=== PATIENT | female | born 1940 | race Caucasian/White ===

== ENCOUNTER 2016-05-17 18:24 | Inpatient (IN) | payer BC, MEDICARE ==
[2016-05-17 20:40] VITALS: BMI 30.2
[2016-05-17 21:30] LABS: Glucose,Whole Blood 107 mg/dL (75-99)
[2016-05-17] MEDS ORDERED: SODIUM CHLORIDE 0.9% 1,000 ML IV SCH (21:45)
--- NOTE | 2016-05-17 22:01 | XR ---
EXAMINATION TYPE: XR chest 1V portable DATE OF EXAM: 05/17/2016 9:57 PM COMPARISON: NONE HISTORY: Double vision TECHNIQUE: Single frontal view of the chest is obtained. FINDINGS: There is no heart failure nor confluent pneumonic infiltrate. There are no hilar masses. C ostophrenic angles are clear. There are chest leads. IMPRESSION: No active cardiopulmonary disease.
[2016-05-17] MEDS: MELATONIN 5 MG TABLET PO SCH (22:32)
[2016-05-17] MEDS: ATORVASTATIN 20 MG TAB PO SCH (22:32)
[2016-05-17] MEDS: DULoxetine HCL 30 MG CAPSULE.DR PO SCH (22:32)
[2016-05-17 22:38] LABS: Basophils % (A) 1 %; CH 31.2; CHCM 33.9; Eosinophils # (A) 0.1 k/uL (0-0.7); Eosinophils % (A) 2 %; HCT 38.4 % (34.0-46.0); HDW 2.63; HGB 12.8 gm/dL (11.4-16.0); Luc # (Auto) 0.15; Luc % (Auto) 2; Lymphocytes # (A) 3.2 k/uL (1.0-4.8); Lymphocytes % (A) 50 %; MCHC 33.4 g/dL (31.0-37.0); MCV 92.8 fL (80.0-100.0); Mean Platelet Volume 8.1; Monocytes # (A) 0.3 k/uL (0-1.0); Monocytes % (A) 5 %; Neutrophils # (A) 2.6 k/uL (1.3-7.7); Neutrophils % (A) 41 %; RBC 4.14 m/uL (3.80-5.40); RDW 13.4 % (11.5-15.5); WBC 6.4 k/uL (3.8-10.6); WBC (Perox) 6.38
[2016-05-17 22:45] LABS: Prothrombin Time 10.4 sec (9.0-12.0)
[2016-05-17 22:50] LABS: Calcium 9.9 mg/dL (8.4-10.2); Potassium 4.2 mmol/L (3.5-5.1)
[2016-05-17] MEDS ORDERED: ACETAMINOPHEN TAB 325 MG TAB PO PRN (22:50)
[2016-05-18 06:28] LABS: Glucose,Whole Blood 110 mg/dL (75-99)
[2016-05-18] MEDS: INSULIN LISPRO (humaLOG) 300 UNIT/3 ML VIAL SQ SCH ×4 (06:39→21:20)
[2016-05-18] MEDS: PANTOPRAZOLE 40 MG TABLET PO SCH (06:40)
[2016-05-18 06:51] LABS: Calcium 9.8 mg/dL (8.4-10.2); Potassium 4.5 mmol/L (3.5-5.1)
[2016-05-18 06:57] LABS: Basophils % (A) 1 %; CH 30.9; CHCM 33.2; Eosinophils # (A) 0.1 k/uL (0-0.7); Eosinophils % (A) 2 %; HCT 38.3 % (34.0-46.0); HDW 2.61; HGB 12.5 gm/dL (11.4-16.0); Luc # (Auto) 0.19; Luc % (Auto) 4; Lymphocytes # (A) 2.9 k/uL (1.0-4.8); Lymphocytes % (A) 59 %; MCH 30.6 pg (25.0-35.0); MCHC 32.6 g/dL (31.0-37.0); MCV 93.7 fL (80.0-100.0); Mean Platelet Volume 7.9; Monocytes # (A) 0.2 k/uL (0-1.0); Monocytes % (A) 5 %; Neutrophils # (A) 1.5 k/uL (1.3-7.7); Neutrophils % (A) 30 %; RBC 4.09 m/uL (3.80-5.40); RDW 13.3 % (11.5-15.5); WBC (Perox) 5.08
[2016-05-18 08:07] LABS: Hemoglobin A1C 6.5 % (4.2-6.1)
[2016-05-18] MEDS: MULTIVITAMINS, THERA 1 EACH TAB PO SCH (08:13)
[2016-05-18] MEDS: BISOPROLOL 5 MG TAB PO SCH (08:14)
[2016-05-18] MEDS: DULoxetine HCL 30 MG CAPSULE.DR PO SCH ×2 (08:14→08:20)
[2016-05-18] MEDS: ASPIRIN 81 MG CHEW PO SCH (08:14)
[2016-05-18] MEDS: LORATADINE 10 MG TAB PO SCH (08:14)
[2016-05-18] MEDS: LOSARTAN 25 MG TAB PO SCH (08:14)
[2016-05-18] MEDS: CALCIUM CARB-VIT D 500MG-200UN 1 EACH TAB PO SCH (08:14)
[2016-05-18] MEDS ORDERED: ERGOCALCIFEROL 50,000 UNIT CAP PO SCH (09:00)
[2016-05-18 11:59] LABS: Glucose,Whole Blood 116 mg/dL (75-99)
[2016-05-18] MEDS: Acetaminophen-Codeine 300-30mg TAB PO PRN ×2 (13:59→20:27)
--- NOTE | 2016-05-18 15:31 | P.HPIM ---
History of Present Illness H&P Date: 05/18/16 76-year-old female with history of hypertension, diabetes mellitus type 2, the hospital with acute onset double vision. Patient was in good health until 2 nights ago and patient noted sudden onset double vision. Patient then went to the [facility] with similar complaints. Since patient has had 12 hours of symptoms initially it was discussed that patient could have a workup on outpatient basis. However patient complained of a headache during the same period of time that has been ongoing around her left eye. The patient covers her left eye is able to have normal vision. Initial computed tomography scan of the head was negative at the other facility. Patient denies having any other focal motor or sensory deficits. Patient denies having any dizziness when her left eye is closed especially. Does complain of a headache that is orbital location radiating to the back of her head does state to have some tearing around the eye as well. 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, History of Any Multi-Drug Resistant Organisms: None Reported Past Surgical History: Adenoidectomy, Cholecystectomy, Hysterectomy, Tonsillectomy Past Anesthesia/Blood Transfusion Reactions: No Reported Reaction Past Psychological History: No Psychological Hx Reported Smoking Status: Never smoker Past Alcohol Use History: None Reported Past Drug Use History: None Reported - Past Family History Sister(s) Family Medical History: Dementia Medications and Allergies Home Medications Medication Instructions Recorded Confirmed Type Acetaminophen Tab [Tylenol Tab] 1,000 mg PO [facility] 05/17/16 05/17/16 History Acetaminophen Tab [Tylenol Tab] 500 mg PO 05/17/16 05/17/16 History Aspirin [Adult Low Dose Aspirin EC] 81 mg PO DAILY 05/17/16 05/17/16 History Atorvastatin [Lipitor] 20 mg PO HS 05/17/16 05/17/16 History Bisoprolol [Zebeta] 10 mg PO DAILY 05/17/16 05/17/16 History Calcium Carbonate/Vitamin D3 1 tab PO DAILY 05/17/16 05/17/16 History [Calcium 600-Vit D3 800 Tab] DULoxetine HCL [Cymbalta] 60 mg PO DAILY 05/17/16 05/18/16 History Ergocalciferol [Vitamin D2] 50,000 unit PO Q30D 05/17/16 05/17/16 History Glimepiride [Amaryl] 0.5 mg PO Q48H 05/17/16 05/17/16 History Loratadine [Claritin] 10 mg PO DAILY 05/17/16 05/17/16 History Losartan [Cozaar] 25 mg PO DAILY 05/17/16 05/17/16 History Melatonin 5 mg PO HS 05/17/16 05/17/16 History Multivits-Min/Iron/FA/Lutein 1 tab PO DAILY 05/17/16 05/17/16 History [Centrum Silver Women Tablet] [place]-3 Fatty Acids/Fish Oil [Fish 1 cap PO DAILY 05/17/16 05/17/16 History Oil 1,000 mg Softgel] Omeprazole 20 mg PO DAILY 05/17/16 05/17/16 History Allergies Allergy/AdvReac Type Severity Reaction Status Date / Time cephalexin [From Keflex] Allergy Rash/Hives Verified 05/17/16 20:43 Physical Exam Vitals: Vital Signs Temp Pulse Resp BP Pulse Ox 05/18/16 14:25 97.2 F L 82 18 112/71 94 L 05/18/16 11:45 58 L 18 123/77 95 05/18/16 08:00 96.9 F L 59 L 18 109/64 92 L 05/18/16 04:00 50 L 18 132/77 94 L 05/18/16 00:00 69 18 129/75 94 L 05/17/16 20:00 97.8 F 62 18 139/85 95 Intake and Output 05/18/16 05/18/16 05/18/16 06:59 14:59 22:59 Intake Total 180 180 Balance 180 180 Intake: IV 180 180 Sodium Chloride 0.9% 1, 180 180 000 ml @ 20 mls/hr IV . Q24H [facility] Rx#:[id number] Other: # Voids 2 1 Physical exam Gen. appearance oriented 3 in no distress eyes pupils are sluggishly reactive on the left side Head is atraumatic normocephalic extraocular movements are intact Neck is supple no JVD Lungs good air entry clear to auscultation no rhonchi or wheezing Heart S1-S2 heard regular rate and rhythm no murmurs appreciated Abdomen is soft nontender no organomegaly bowel sounds are intact Neurologically cranial nerves II-12 grossly intact no focal motor or sensory deficits noted dysdiadochokinesia noted No visual field deficits appreciated. Skin no abnormalities appreciated Results CBC & Chem 7: 05/18/16 06:02 05/18/16 06:02 Labs: Abnormal Lab Results - Last 24 Hours (Table) 05/17/16 05/17/16 05/17/16 Range/Units 21:29 22:04 22:04 BUN 22 H (7-17) mg/dL Creatinine 1.21 H (0.52-1.04) mg/dL Glucose (74-99) mg/dL POC Glucose (mg/dL) 107 H (75-99) mg/dL Hemoglobin A1c 6.5 H (4.2-6.1) % 05/18/16 05/18/16 05/18/16 Range/Units 06:02 06:27 11:43 BUN 22 H (7-17) mg/dL Creatinine 1.20 H (0.52-1.04) mg/dL Glucose 112 H (74-99) mg/dL POC Glucose (mg/dL) 110 H 116 H (75-99) mg/dL Hemoglobin A1c (4.2-6.1) % Thrombosis Risk Factor Assmnt - Choose All That Apply Any of the Below Risk Factors Present?: Yes Each Factor Represents 1 point: Obesity (BMI >25), Swollen legs (current) Other Risk Factors: Yes Each Risk Factor Represents 2 Points: Age 61-74 years Other congenital or acquired thrombophilia - If yes, enter type in comment: Yes Thrombosis Risk Factor Assessment Total Risk Factor Score: 4 Thrombosis Risk Factor Assessment Level: Moderate Risk Assessment and Plan Plan: #1 double vision with left-sided headache. Differential diagnosis includes glaucoma versus an ocular stroke #2 history of hypertension #3 dyslipidemia #4 diabetes mellitus type 2 #5 headache likely associated with above #6 GERD Plan We'll have an graphic art sales representative see the patient. MRI of the brain will be obtained. Continue telemetry monitoring. A carotid study will be obtained. Aspirin and statin will be started. Echocardiogram will also be obtained to complete workup for acute CVA. Neurology consultation. Continue ongoing care in the selective floor.
--- NOTE | 2016-05-18 17:19 | MR ---
EXAMINATION TYPE: MR brain wo con DATE OF EXAM: 05/18/2016 5:08 PM COMPARISON: NONE HISTORY: Headache, double vision T1-weighted sagittal, T2, FLAIR, and diffusion axial, and T2 coronal coronal views of the brain are s ubmitted. There is no evidence of acute ischemia. The ventricles, basal cisterns, and sulci overlying the conv exities are consistent with the patient's age. There is no mass effect. Craniocervical junction maintained. Sella turcica has a normal appearance. No cerebellopontine angle mass. There is a 1.2 cm mass appears to be related to right parotid glands be correlated with CT soft tissue neck. Changes of mild chronic sinusitis. There a few scattered areas of abnormal signal within the white ma tter which are not as severely. No diffusion restriction. Measures less than 5 mm. Changes of chronic mastoiditis greater on the left noted. IMPRESSION: 1. No acute intracranial process 2. Nonspecific white matter changes. Remote microvascular ischemia favored over demyelinating process correlate clinically. 3. 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
[2016-05-18 17:47] LABS: Glucose,Whole Blood 108 mg/dL (75-99)
--- NOTE | 2016-05-18 18:06 | US ---
EXAMINATION TYPE: US carotid duplex BILAT DATE OF EXAM: 05/18/2016 5:31 PM COMPARISON: NONE CLINICAL HISTORY: stroke. EXAM MEASUREMENTS: RIGHT: Peak Systolic Velocity (PSV) cm/sec ----- Right CCA: 69.1 ----- Right ICA: 83.3 ----- Right ECA: 83.7 ICA/CCA ratio: 1.2 RIGHT: End Diastole cm/sec ----- Right CCA: 22.7 ----- Right ICA: 22.7 ----- Right ECA: 11.1 LEFT: Peak Systolic Velocity (PSV) cm/sec ----- Left CCA: 77.3 ----- Left ICA: 75.6 ----- Left ECA: 70.0 ICA/CCA ratio: 1.0 LEFT: End Diastole cm/sec ----- Left CCA: 21.5 ----- Left ICA: 30.4 ----- Left ECA: 10.6 VERTEBRALS (direction of flow): Right Vertebral: Antegrade Left Vertebral: Antegrade TECHNOLOGIST IMPRESSION: Mild amount of plaque visualized, no elevated velocities IMPRESSION: There is antegrade flow in the vertebral arteries. The images and measurements suggest 2 0-30% stenosis in both internal carotid arteries. Criteria for Assigning % of Stenosis / Diameter reduction (Estimation based on the indirect measurements of the internal carotid artery velocities (ICA PSV). 1. Normal (no stenosis)=ICA PSV < 125 cm/s: ratio < 2.0: ICA EDV<40 cm/s. 2. Less than 50% stenosis=ICA PSV < 125 cm/s: ratio < 2.0: ICA EDV<40 cm/s. 3. 50 to 69% stenosis=ICA PSV of 125 to 230 cm/s: ration 2.0 ? 4.0: ICA EDV 40-100 cm/s. 4. Greater than 70% stenosis to near occlusion= ICA PSV > 230 cm/s: ratio > 4.0: ICA EDV > 100 cm/s. 5. Near occlusion= ICA PSV velocities may be low or undetectable: variable ratio and ICA EDV. 6. Total occlusion=unable to detect flow.
--- NOTE | 2016-05-18 20:04 | P.CNNES ---
History of Present Illness Consult date: 05/18/16 Reason for Consult: This patient being evaluated for diplopia and headache. History of Present Illness: This patient is a 76-year-old right-handed white female who was in her usual state of health until 2 days ago. Apparently she developed sudden onset of headache and double vision. She was taken to [facility] for further evaluation. Apparently she was seen in the ER there for the headache and double vision. She underwent a computed tomography scan of the brain which was reported negative for any acute changes. The patient states that she awoke 2 nights ago with trouble with her vision. She states she was having double vision which she describes as horizontal diplopia. Images were appearing side- by-side. The symptoms came on suddenly out of nowhere as she has never had this problem previously. Patient also described headache symptoms. As noted she was evaluated in the emergency room at [facility] and was transferred to [facility] for further evaluation. Patient was seen by Dr. Kathleen and admitted to the [facility] and was sent for an MRI of the brain today. The results of the MRI indicate no acute intracranial process. Nonspecific white matter changes were noted. 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 Patient states she has had surgery on the right parotid gland many years ago. We would recommend further follow-up as recommended by radiology. The patient states that her vision continues to give her difficulty. Looking across the room she sees 2 objects on the wall. As noted there horizontal diplopia. She is to be seen by ophthalmology and we will await their further evaluation. Patient denies any previous history of TIA or stroke. She does have history of diabetes mellitus but her blood sugars have been well controlled. Her hemoglobin A1c was 6.5. The patient is now admitted and neurology has been consulted for further evaluation and recommendations. Review of Systems Constitutional: Denies chills, Denies fever Eyes: left irritation, bilateral diplopia, denies blurred vision, denies pain Ears, nose, mouth and throat: Denies headache, Denies sore throat Cardiovascular: Denies chest pain, Denies shortness of breath Respiratory: Denies cough Gastrointestinal: Denies abdominal pain, Denies diarrhea, Denies nausea, Denies vomiting Genitourinary: Denies dysuria, Denies hematuria Musculoskeletal: Denies myalgias Integumentary: Denies pruritus, Denies rash Neurological: Reports double vision, Reports headaches, Denies numbness, Denies weakness Psychiatric: Denies anxiety, Denies depression Endocrine: Denies fatigue, Denies weight change Past Medical History Past Medical History: Chest Pain / Angina, Diabetes Mellitus, Hyperlipidemia, Memory Impairment, Renal Disease Additional Past Medical History / Comment(s): 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, History of Any Multi-Drug Resistant Organisms: None Reported Past Surgical History: Adenoidectomy, Cholecystectomy, Hysterectomy, Tonsillectomy Past Anesthesia/Blood Transfusion Reactions: No Reported Reaction Past Psychological History: No Psychological Hx Reported Smoking Status: Never smoker Past Alcohol Use History: None Reported Past Drug Use History: None Reported - Past Family History Sister(s) Family Medical History: Dementia Medications and Allergies Home Medications Medication Instructions Recorded Confirmed Type Acetaminophen Tab [Tylenol Tab] 1,000 mg PO QAM 05/17/16 05/17/16 History Acetaminophen Tab [Tylenol Tab] 500 mg PO HS 05/17/16 05/17/16 History Aspirin [Adult Low Dose Aspirin EC] 81 mg PO DAILY 05/17/16 05/17/16 History Atorvastatin [Lipitor] 20 mg PO HS 05/17/16 05/17/16 History Bisoprolol [Zebeta] 10 mg PO DAILY 05/17/16 05/17/16 History Calcium Carbonate/Vitamin D3 1 tab PO DAILY 05/17/16 05/17/16 History [Calcium 600-Vit D3 800 Tab] DULoxetine HCL [Cymbalta] 60 mg PO DAILY 05/17/16 05/18/16 History Ergocalciferol [Vitamin D2] 50,000 unit PO Q30D 05/17/16 05/17/16 History Glimepiride [Amaryl] 0.5 mg PO Q48H 05/17/16 05/17/16 History Loratadine [Claritin] 10 mg PO DAILY 05/17/16 05/17/16 History Losartan [Cozaar] 25 mg PO DAILY 05/17/16 05/17/16 History Melatonin 5 mg PO HS 05/17/16 05/17/16 History Multivits-Min/Iron/FA/Lutein 1 tab PO DAILY 05/17/16 05/17/16 History [Centrum Silver Women Tablet] [place]-3 Fatty Acids/Fish Oil [Fish 1 cap PO DAILY 05/17/16 05/17/16 History Oil 1,000 mg Softgel] Omeprazole 20 mg PO DAILY 05/17/16 05/17/16 History Allergies Allergy/AdvReac Type Severity Reaction Status Date / Time cephalexin [From Keflex] Allergy Rash/Hives Verified 05/17/16 20:43 Physical Examination - Vital Signs Vital Signs: Vital Signs Temp Pulse Resp BP Pulse Ox 05/18/16 15:45 96.6 F L 64 18 135/81 95 05/18/16 14:25 97.2 F L 82 18 112/71 94 L 05/18/16 11:45 58 L 18 123/77 95 05/18/16 08:00 96.9 F L 59 L 18 109/64 92 L 05/18/16 04:00 50 L 18 132/77 94 L 05/18/16 00:00 69 18 129/75 94 L 05/17/16 20:00 97.8 F 62 18 139/85 95 Intake and Output 05/18/16 05/18/16 05/18/16 06:59 14:59 22:59 Intake Total 180 380 180 Balance 180 380 180 Intake: IV 180 180 Sodium Chloride 0.9% 1, 180 180 000 ml @ 20 mls/hr IV . Q24H [facility] Rx#:[id number] Oral 380 Other: # Voids 2 3 - Constitutional General appearance: average body habitus, cooperative - EENT EENT: mucous membranes moist - Respiratory Respiratory: lungs clear, normal breath sounds - Cardiovascular Cardiovascular: regular rate, normal S1, normal S2 Extremities: no peripheral edema bilaterally - Gastrointestinal Gastrointestinal: normoactive bowel sounds - Integumentary Integumentary: normal - Neurologic Cranial nerve examination: VFF, V1/V2/V3 grossly intact, face symmetric, tongue midline, intact gag reflex, intact corneal reflex, normal palatal elevation Speech examination: intact Sensorimotor examination: intact Detailed motor examination: grossly full strength in all extremities Motor examination - right side: 5/5: biceps, triceps, wrist flexion, wrist extension, farm supervisor, hip flexors, knee extensors, dorsiflexion, toe extension (EHL) , plantarflexion Motor examination - left side: 5/5: biceps, triceps, wrist flexion, wrist extension, farm supervisor, hip flexors, knee extensors, dorsiflexion, toe extension (EHL) , plantarflexion Detailed sensory examination: intact Reflex and gait examination: intact Reflexes: 1+: ankle, bicep, knee, tricep - Musculoskeletal Musculoskeletal: no pain - Psychiatric Psychiatric: mood/affect appropriate, cooperative Results - Laboratory Findings CBC and BMP: 05/18/16 06:02 05/18/16 06:02 Abnormal Lab Findings: Abnormal Labs 05/17/16 05/17/16 05/17/16 21:29 22:04 22:04 BUN 22 H Creatinine 1.21 H Glucose POC Glucose (mg/dL) 107 H Hemoglobin A1c 6.5 H 05/18/16 05/18/16 05/18/16 06:02 06:27 11:43 BUN 22 H Creatinine 1.20 H Glucose 112 H POC Glucose (mg/dL) 110 H 116 H Hemoglobin A1c Assessment and Plan (1) Diplopia Status: Acute Code(s): H53.2 - DIPLOPIA (2) Headache Status: Acute Code(s): R51 - HEADACHE (3) Abducent nerve palsy, right eye Status: Acute Code(s): H49.21 - SIXTH [ABDUCENT] NERVE PALSY, RIGHT EYE Plan: This patient is a 76-year-old female who developed sudden onset of horizontal diplopia 2 days ago. She was taken to [facility] where she underwent a computed tomography scan of the brain which was reported negative and then was transferred to the [facility] for further evaluation. Patient underwent MRI of the brain today the results which are noted above. 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 There appears to be a right lateral rectus paresis. MRI of the brain failed to reveal any evidence of brainstem stroke. We are recommending the patient be evaluated for ocular paresis with an ophthalmology consultation. We will obtain a acetylcholine receptor antibody testing to further evaluate for myasthenia gravis. Her neurological examination otherwise is nonfocal. Given her severity of headaches as well as acute right lateral rectus weakness we would recommend an MRA of the brain to rule out cerebral aneurysm. Would recommend symptomatic treatment of her headaches at this time. Her overall prognosis at this time remains guarded. We will continue close neurological follow-up for this patient during this admission. Time with Patient: Greater than 30
[2016-05-18] MEDS: MELATONIN 5 MG TABLET PO SCH (20:26)
[2016-05-18] MEDS: ATORVASTATIN 20 MG TAB PO SCH (20:26)
[2016-05-18 21:09] LABS: Glucose,Whole Blood 138 mg/dL (75-99)
[2016-05-19 06:26] LABS: Glucose,Whole Blood 111 mg/dL (75-99)
[2016-05-19] MEDS: PANTOPRAZOLE 40 MG TABLET PO SCH (06:31)
[2016-05-19] MEDS: INSULIN LISPRO (humaLOG) 300 UNIT/3 ML VIAL SQ SCH ×4 (06:32→21:03)
[2016-05-19 06:43] LABS: Basophils % (A) 1 %; CH 30.6; CHCM 33.2; Eosinophils # (A) 0.2 k/uL (0-0.7); Eosinophils % (A) 3 %; HCT 39.6 % (34.0-46.0); HDW 2.59; HGB 12.8 gm/dL (11.4-16.0); Luc # (Auto) 0.19; Luc % (Auto) 3; Lymphocytes # (A) 2.8 k/uL (1.0-4.8); Lymphocytes % (A) 51 %; MCH 29.9 pg (25.0-35.0); MCHC 32.3 g/dL (31.0-37.0); MCV 92.7 fL (80.0-100.0); Mean Platelet Volume 7.7; Monocytes # (A) 0.3 k/uL (0-1.0); Monocytes % (A) 5 %; Neutrophils % (A) 37 %; RBC 4.28 m/uL (3.80-5.40); RDW 13.2 % (11.5-15.5); WBC 5.5 k/uL (3.8-10.6); WBC (Perox) 5.59
[2016-05-19 07:02] LABS: Calcium 9.9 mg/dL (8.4-10.2); Potassium 4.4 mmol/L (3.5-5.1); Total Bilirubin 0.6 mg/dL (0.2-1.3); Total Protein 7.6 g/dL (6.3-8.2)
[2016-05-19] MEDS ORDERED: RX INFO: IV CONTRAST WAS GIVEN 1 EACH MISC MISCELLANE PRN (07:48)
[2016-05-19 08:42] LABS: Manual Review Performed
[2016-05-19] MEDS ORDERED: GLIMEPIRIDE 0.5 MG TAB PO SCH (09:00)
--- NOTE | 2016-05-19 09:40 | ECHOF ---
Referral Reason:stroke, RVSP MEASUREMENTS -------- HEIGHT: 160.0 cm WEIGHT: 77.1 kg BP: RVIDd: 2.8 cm (< 3.3) IVSd: 1.2 cm (0.6 - 1.1) LVIDd: 3.7 cm (3.9 - 5.3) LVPWd: 1.1 cm (0.6 - 1.1) IVSs: 1.5 cm LVIDs: 2.9 cm LVPWs: 1.2 cm LA Diam: 3.2 cm (2.7 - 3.8) Ao Diam: 2.6 cm (2.0 - 3.7) AV Cusp: 2.2 cm (1.5 - 2.6) MV EXCURSION: 14.880 mm (> 18.000) MV EF SLOPE: 71 mm/s (70 - 150) EPSS: 0.3 cm MV E Michael: 0.39 m/s MV DecT: 506 ms MV A Michael: 0.78 m/s MV E/A Ratio: 0.49 RAP: 5.00 mmHg RVSP: 10.90 mmHg FINDINGS -------- Sinus rhythm. This was a technically adequate study. There is mild concentric left ventricular hypertrophy. Overall left ventricular systolic function is low-normal with, an EF between 50 - 55 %. The right ventricle is normal in size. The left atrial size is normal. The right atrial size is normal. There is mild aortic valve sclerosis. There is no evidence of aortic regurgitation. Mild mitral annular calcification present. Mild mitral regurgitation is present. Mild tricuspid regurgitation present. There is no evidence of pulmonary hypertension. The right ventricular systolic pressure, as measured by Doppler, is 10.90mmHg. There is no pulmonic regurgitation present. The aortic root size is normal. Echo free space may represent effusion or a pericardial fat pad. CONCLUSIONS -------- 1. There is mild concentric left ventricular hypertrophy. 2. The aortic root size is normal. 3. Echo free space may represent effusion or a pericardial fat pad. 4. Overall left ventricular systolic function is low-normal with, an EF between 50 - 55 %. 5. There is mild aortic valve sclerosis. 6. Mild mitral annular calcification present. 7. Mild mitral regurgitation is present. 8. Mild tricuspid regurgitation present. 9. There is no evidence of pulmonary hypertension. 10. The right ventricular systolic pressure, as measured by Doppler, is 10.90mmHg. 11. There is no pulmonic regurgitation present. OFFICE ADMIN: Vi Cornejo RDCS
--- NOTE | 2016-05-19 09:59 | MR ---
EXAMINATION TYPE: MR angio head wo con DATE OF EXAM: 05/19/2016 9:43 AM COMPARISON: NONE HISTORY: acute right abducent nerve paresis and headaches TECHNIQUE: Utilizing 3-D [id number] intracranial MRA of the [place] was performed. FINDINGS: The vertebrobasilar and carotid systems are patent. There is mild prominence of the origin of the po sterior communicating artery bilaterally greater on the right. 2 mm aneurysm on the right suspected. IMPRESSION: 1. 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
[2016-05-19] MEDS: ASPIRIN 81 MG CHEW PO SCH (10:04)
[2016-05-19] MEDS: MULTIVITAMINS, THERA 1 EACH TAB PO SCH (10:04)
[2016-05-19] MEDS: BISOPROLOL 5 MG TAB PO SCH (10:04)
[2016-05-19] MEDS: DULoxetine HCL 30 MG CAPSULE.DR PO SCH (10:04)
[2016-05-19] MEDS: CALCIUM CARB-VIT D 500MG-200UN 1 EACH TAB PO SCH (10:04)
[2016-05-19] MEDS: LORATADINE 10 MG TAB PO SCH (10:05)
[2016-05-19] MEDS: LOSARTAN 25 MG TAB PO SCH (10:05)
[2016-05-19 12:18] LABS: Glucose,Whole Blood 114 mg/dL (75-99)
--- NOTE | 2016-05-19 13:35 | CT ---
EXAMINATION TYPE: CT soft tissue neck w con DATE OF EXAM: 05/19/2016 12:15 PM COMPARISON: NONE HISTORY: 76-year-old female had surgery on gland on left side of neck removed and is now having troub le with right side gland. Parotid mass. TECHNIQUE: Contiguous axial scanning of the neck performed with IV Contrast, patient injected with 80 mL of Visipaque 320. Coronal/sagittal reconstructions performed. CT DLP: 791 mGycm Automated exposure control for dose reduction was used. FINDINGS: Visualized intracranial structures, orbits and globes, paranasal sinuses, and mastoid air cells appea r clear. Questionable 5 mm debris within the left external auditory canal can be correlated with dire ct visualization. The nasopharynx and oropharynx are clear. The glottic and subglottic structures as well as the trache al column are clear. Some mild biapical pleural parenchymal scarring and dependent atelectasis in the upper lungs. Mildly enlarged bilateral hilar lymph nodes measure 1.3 cm on the right and 1.1 cm on t he left. The parotid and submandibular glands are satisfactory. There appears to have been prior resection of the left parotid gland. Minimal residual parotid tissue may remain in the preauricular region, axial image 18. The right parotid gland is atrophic. There is a multilocular appearing cystic lesion within the super ficial lobe of the right parotid gland measuring 1.1 cm AP by 1.3 cm wide by 1.3 cm craniocaudal, ref er to axial image 22 of and coronal image 45. A few prominent but nonenlarged upper cervical lymph nodes are present on both sides measuring up to 7 mm on the right and 9 mm on the left. No cervical lymphadenopathy by CT size criteria. IMPRESSION: 1. A MULTILOCULAR APPEARING CYSTIC LESION IN THE SUPERFICIAL LOBE OF THE RIGHT PAROTID GLAND MEASURES 1.3 CM (AXIAL IMAGE 22 AND CORONAL IMAGE 45). 2. IF THIS IS A PROGRESSIVELY ENLARGING MASS, BENIGN AND MALIGNANT SALIVARY GLAND TUMORS ARE IN THE D IFFERENTIAL. IF THERE IS INTERMITTENT ENLARGEMENT, THIS COULD RELATE TO INTRAGLANDULAR DUCTAL ECTASIA AND AN INFECTIOUS/INFLAMMATORY ETIOLOGY. 3. POSTSURGICAL CHANGES OF PRIOR LEFT PAROTID RESECTION. 4. MILDLY ENLARGED BILATERAL HILAR LYMPH NODES MEASURE UP TO 1.3 CM AND ARE PROBABLY REACTIVE/POST IN FLAMMATORY. CONSIDER A 3 - 6 MONTH FOLLOW-UP CT CHEST TO REASSESS.
--- NOTE | 2016-05-19 13:57 | P.PN ---
Subjective 76-year-old female with history of hypertension, diabetes mellitus type 2, the hospital with acute onset double vision. Patient was in good health until 2 nights ago and patient noted sudden onset double vision. Patient then went to the [facility] with similar complaints. Since patient has had 12 hours of symptoms initially it was discussed that patient could have a workup on outpatient basis. However patient complained of a headache during the same period of time that has been ongoing around her left eye. The patient covers her left eye is able to have normal vision. Initial computed tomography scan of the head was negative at the other facility. Patient denies having any other focal motor or sensory deficits. Patient denies having any dizziness when her left eye is closed especially. Does complain of a headache that is orbital location radiating to the back of her head does state to have some tearing around the eye as well. 05/19/2016 Patient appears to be doing well continues to have double vision. Patient currently has a patch on. Denies having any focal motor or sensory deficits at this time. States her headache and pressure around the left eye is significant only improved. Objective - Vital Signs Vital signs: Vital Signs Temp 98.0 F 05/19/16 12:00 Pulse 70 05/19/16 12:00 Resp 18 05/19/16 12:00 BP 126/70 05/19/16 12:00 Pulse Ox 96 05/19/16 12:00 Intake & Output 05/18/16 05/19/16 05/19/16 18:59 06:59 18:59 Intake Total 560 230 600 Balance 560 230 600 Weight 76.7 kg 76.7 kg Intake: IV 180 10 40 Sodium Chloride 0.9% 1, 180 10 40 000 ml @ 20 mls/hr IV . Q24H [facility] Rx#:[id number] Oral 380 220 560 Other: # Voids 3 1 - Exam In appearance alert oriented 3 in no distress Head is atraumatic normal supple pupils equal round react to light and accommodation Lungs good air entry clear to auscultation Abdomen soft nontender no organomegaly Heart S1-S2 heard regular rate and rhythm no murmurs appreciated Neuro no focal motor or sensory deficits noted patient complains of double vision. Psych appropriate affect. - Labs CBC & Chem 7: 05/19/16 06:19 05/19/16 06:19 Labs: Abnormal Lab Results - Last 24 Hours (Table) 05/18/16 05/18/16 05/19/16 Range/Units 17:42 21:07 06:19 BUN 25 H (7-17) mg/dL Creatinine 1.39 H (0.52-1.04) mg/dL Glucose 121 H (74-99) mg/dL POC Glucose (mg/dL) 108 H 138 H (75-99) mg/dL TSH 5.040 H (0.465-4.680) mIU/L 05/19/16 05/19/16 Range/Units 06:24 12:14 BUN (7-17) mg/dL Creatinine (0.52-1.04) mg/dL Glucose (74-99) mg/dL POC Glucose (mg/dL) 111 H 114 H (75-99) mg/dL TSH (0.465-4.680) mIU/L Assessment and Plan Plan: #1 double vision with left-sided headache. 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 Await ophthalmology recommendations. Neurology consultation and recommendations are appreciated. Continue ongoing care in the selective floor.
[2016-05-19] MEDS: Acetaminophen-Codeine 300-30mg TAB PO PRN (14:58)
--- NOTE | 2016-05-19 16:00 | CONS ---
DATE OF CONSULTATION: CHIEF COMPLAINT: Double vision since Sunday. Medical history reviewed including hypertension, diabetes mellitus . HISTORY OF PRESENT ILLNESS: The patient noticed double vision since Sunday. No other eye problems. Previous cataract surgery both sides. No history of glaucoma. No family history of retinal detachment. EYE EXAMINATION: Vision 20/30 OU. Extraocular motility shows limited abduction of the right eye. Pupils were equal and reactive. Lids were equal and normal. The intraocular pressure was 18 in the right eye and 19 in the left eye. Implant in good position. Retina shows no disc edema. Peripheral vasculature normal. ASSESSMENT: 1. 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 2. Hypertensive retinopathy. 3. No obvious diabetic retinopathy. PLAN: I reviewed the MRI which showed microischemia. The MRA shows possible aneurysm. I advised to patch the right eye to decrease double vision. Otherwise, I will recheck her in a week in the office. Thank you for the consultation.
[2016-05-19 16:58] LABS: Glucose,Whole Blood 121 mg/dL (75-99)
[2016-05-19] MEDS: SODIUM CHLORIDE 0.9% 600 ML IV SCH (18:25)
--- NOTE | 2016-05-19 18:52 | P.PN ---
Subjective This patient is a 76-year-old right-handed white female who was admitted to hospital yesterday with symptoms of acute onset of diplopia and headaches. Patient is doing somewhat better today. Several of her children were at bedside. She did undergo a MRA angiogram of the brain due to her severe headaches. 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 We've reviewed the report and results today with the patient and daughter at bedside. The size of the aneurysm is very small. We would recommend a neurosurgical consultation in the outpatient clinic for further evaluation of this aneurysm finding. This is not contributing to her current symptoms. She was seen by ophthalmology who agree with right lateral rectus palsy. This hopefully should improve with time. She is once again encouraged to patch the eye every 12 hours alternatively. Patient is being evaluated for parotid lesion and underwent ultrasound study today. Those results are pending. We have ordered testing for possibility of myasthenia gravis involving the ocular eye muscles. His blood test will not be available for several days. Patient is encouraged to follow-up in the outpatient neurology clinic following discharge in 2-3 weeks. At that time we can refer to neurosurgery as well as review the results of this specialized blood test for myasthenia gravis. Patient otherwise seems to be doing well. She should continue to patch the eye at this time due to the diplopia. Hopefully this will show improvement with time. We will continue close neurological follow-up for this patient during this admission. Objective - Vital Signs Vital signs: Vital Signs Temp 98.2 F 05/19/16 15:27 Pulse 63 05/19/16 15:27 Resp 18 05/19/16 15:27 BP 120/71 05/19/16 15:27 Pulse Ox 93 L 05/19/16 15:27 Intake & Output 05/18/16 05/19/16 05/19/16 18:59 06:59 18:59 Intake Total 560 230 600 Balance 560 230 600 Weight 76.7 kg 76.7 kg Intake: IV 180 10 40 Sodium Chloride 0.9% 1, 180 10 40 000 ml @ 20 mls/hr IV . Q24H [facility] Rx#:[id number] Oral 380 220 560 Other: # Voids 3 1 - Exam Physical examination: PHYSICAL EXAMINATION: Patient is resting comfortably in bed. VITAL SIGNS: Blood pressure is [120/71]. Heart rate is [63]. Respiration is [18] . Temperature is [98.0]. HEENT: Head is atraumatic, neck is supple, there were no carotid bruits. CHEST: Lungs are clear to auscultation and percussion. CARDIAC: S1, S2 normal rate and rhythm. There is no murmur. ABDOMEN: Soft and nontender. Bowel sounds are present. EXTREMITIES: There is no pedal edema. Peripheral pulses are present. Neurological examination: Neurological examination is unchanged from yesterday. - Labs CBC & Chem 7: 05/19/16 06:19 05/19/16 06:19 Labs: Abnormal Lab Results - Last 24 Hours (Table) 05/18/16 05/18/16 05/19/16 Range/Units 17:42 21:07 06:19 BUN 25 H (7-17) mg/dL Creatinine 1.39 H (0.52-1.04) mg/dL Glucose 121 H (74-99) mg/dL POC Glucose (mg/dL) 108 H 138 H (75-99) mg/dL TSH 5.040 H (0.465-4.680) mIU/L 05/19/16 05/19/16 Range/Units 06:24 12:14 BUN (7-17) mg/dL Creatinine (0.52-1.04) mg/dL Glucose (74-99) mg/dL POC Glucose (mg/dL) 111 H 114 H (75-99) mg/dL TSH (0.465-4.680) mIU/L Assessment and Plan (1) Diplopia Status: Acute Code(s): H53.2 - DIPLOPIA (2) Headache Status: Acute Code(s): R51 - HEADACHE (3) Abducent nerve palsy, right eye Status: Acute Code(s): H49.21 - SIXTH [ABDUCENT] NERVE PALSY, RIGHT EYE Plan: This patient is a 76-year-old female who developed sudden onset of horizontal diplopia 2 days ago. She was taken to [facility] where she underwent a computed tomography scan of the brain which was reported negative and then was transferred to the [facility] for further evaluation. Patient underwent MRI of the brain today the results which are noted above. 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 There appears to be a right lateral rectus paresis. MRI of the brain failed to reveal any evidence of brainstem stroke. We are recommending the patient be evaluated for ocular paresis with an ophthalmology consultation. We will obtain a acetylcholine receptor antibody testing to further evaluate for myasthenia gravis. Her neurological examination otherwise is nonfocal. Given her severity of headaches as well as acute right lateral rectus weakness we would recommend an MRA of the brain to rule out cerebral aneurysm. MRA of the brain was reviewed today with the patient. 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 There does not appear to be any aneurysm in the Meckel[place]. Patient was seen by ophthalmology today who agree with evidence of a right lateral rectus palsy. She was advised to continue to use the eye patch. We have reviewed the MRA results today with the patient and her daughter at bedside. We have suggested a neurosurgical consultation in the outpatient clinic for further evaluation of this very small aneurysm. This does not appear to be contributing to her current symptoms. Patient should follow-up in the outpatient neurology clinic for results of the acetylcholine receptor antibody tests. She underwent ultrasound of the neck and we are waiting final report and recommendations based on this testing. Would recommend symptomatic treatment of her headaches at this time. We will continue close neurological follow-up for this patient. Her overall prognosis at this time remains guarded.
[2016-05-19 20:52] LABS: Glucose,Whole Blood 173 mg/dL (75-99)
[2016-05-19] MEDS: ATORVASTATIN 20 MG TAB PO SCH (21:02)
[2016-05-19] MEDS: MELATONIN 5 MG TABLET PO SCH (21:03)
--- NOTE | 2016-05-19 22:29 | EEG ---
DATE OF SERVICE: 05/19/2016 INDICATIONS FOR EXAMINATION: This patient is 76-year-old female being evaluated for sudden onset of diplopia and headaches. AGE: 76Y EEG FINDINGS: A routine 21-channel, awake digital EEG recording was accomplished utilizing the 10-20 international system with bipolar and referential montages. The background activity in the most alert resting state consists of a low to medium amplitude, fairly well-developed and well-sustained 8-9 Hz activity over the posterior head regions. This posterior rhythm attenuates to eye opening. There is a small amount of low amplitude 18-20 Hz beta activity seen maximally over the anterior head regions. Muscle and movement artifact was observed on a few occasions during the tracing. Hyperventilation was not performed. Photic stimulation at flash frequencies of 2-30 Hz produced a good symmetrical occipital driving response. No epileptiform discharges were seen. IMPRESSION: This EEG is within normal limits for the patient's age. The EEG failed to reveal any focal, lateralized or epileptiform abnormalities. Clinical correlation is recommended.
[2016-05-20 06:35] VITALS: RESP 18
[2016-05-20] MEDS: INSULIN LISPRO (humaLOG) 300 UNIT/3 ML VIAL SQ SCH ×2 (06:58→12:08)
[2016-05-20] MEDS: PANTOPRAZOLE 40 MG TABLET PO SCH (06:59)
[2016-05-20 07:12] LABS: Glucose,Whole Blood 115 mg/dL (75-99)
[2016-05-20] MEDS: BISOPROLOL 5 MG TAB PO SCH (07:42)
[2016-05-20] MEDS: LOSARTAN 25 MG TAB PO SCH (07:42)
[2016-05-20] MEDS: MULTIVITAMINS, THERA 1 EACH TAB PO SCH (07:42)
[2016-05-20] MEDS: LORATADINE 10 MG TAB PO SCH (07:42)
[2016-05-20] MEDS: DULoxetine HCL 30 MG CAPSULE.DR PO SCH (07:42)
[2016-05-20] MEDS: CALCIUM CARB-VIT D 500MG-200UN 1 EACH TAB PO SCH (07:42)
[2016-05-20] MEDS: ASPIRIN 81 MG CHEW PO SCH (07:43)
[2016-05-20 11:51] LABS: Glucose,Whole Blood 105 mg/dL (75-99)
[2016-05-20 13:54] VITALS: BP 112/66; PULSE 64; TEMP 98.2
--- NOTE | 2016-05-20 14:21 | P.PN ---
Subjective This patient is a 76-year-old right-handed white female who was admitted to hospital yesterday with symptoms of acute onset of diplopia and headaches. Patient is doing somewhat better today. Several of her children were at bedside. She did undergo a MRA angiogram of the brain due to her severe headaches. 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 We've reviewed the report and results today with the patient and daughter at bedside. The size of the aneurysm is very small. We would recommend a neurosurgical consultation in the outpatient clinic for further evaluation of this aneurysm finding. This is not contributing to her current symptoms. She was seen by ophthalmology who agree with right lateral rectus palsy. This hopefully should improve with time. She is once again encouraged to patch the eye every 12 hours alternatively. Patient is being evaluated for parotid lesion and underwent ultrasound study today. Those results are pending. We have ordered testing for possibility of myasthenia gravis involving the ocular eye muscles. His blood test will not be available for several days. Patient is encouraged to follow-up in the outpatient neurology clinic following discharge in 2-3 weeks. At that time we can refer to neurosurgery as well as review the results of this specialized blood test for myasthenia gravis. Patient otherwise seems to be doing well. She should continue to patch the eye at this time due to the diplopia. Patient underwent computed tomography scan of the soft tissue of the neck with contrast. 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 We are recommending further evaluation of this by ENT. There was also mildly enlarged bilateral hilar lymph nodes. We reviewed this result with the patient today. She should follow-up in regards to this cystic lesion. As noted she will follow-up in the outpatient neurology clinic for results of her myasthenia gravis panel. This takes 10-14 days to obtain the final result. We will continue close neurological follow-up for this patient during this admission. Objective - Vital Signs Vital signs: Vital Signs Temp 97.5 F L 05/20/16 08:00 Pulse 62 05/20/16 08:00 Resp 18 05/20/16 08:00 BP 110/70 05/20/16 08:00 Pulse Ox 94 L 05/20/16 08:00 Intake & Output 05/19/16 05/20/16 05/20/16 18:59 06:59 18:59 Intake Total 920 Balance 920 Weight 76.7 kg 76.9 kg 76.9 kg Intake: IV 40 Sodium Chloride 0.9% 1, 40 000 ml @ 20 mls/hr IV . Q24H [facility] Rx#:[id number] Oral 880 Other: Voiding Method Toilet Toilet # Voids 1 1 1 - Exam Physical examination: PHYSICAL EXAMINATION: Patient is resting comfortably in bed. VITAL SIGNS: Blood pressure is [110/70]. Heart rate is [62]. Respiration is [18] . Temperature is [97.5]. HEENT: Head is atraumatic, neck is supple, there were no carotid bruits. CHEST: Lungs are clear to auscultation and percussion. CARDIAC: S1, S2 normal rate and rhythm. There is no murmur. ABDOMEN: Soft and nontender. Bowel sounds are present. EXTREMITIES: There is no pedal edema. Peripheral pulses are present. Neurological examination: Neurological examination is unchanged from yesterday. - Labs CBC & Chem 7: 05/19/16 06:19 05/19/16 06:19 Labs: Abnormal Lab Results - Last 24 Hours (Table) 05/19/16 05/19/16 05/20/16 Range/Units 16:45 20:51 06:56 POC Glucose (mg/dL) 121 H 173 H 115 H (75-99) mg/dL 05/20/16 Range/Units 11:34 POC Glucose (mg/dL) 105 H (75-99) mg/dL Assessment and Plan (1) Diplopia Status: Acute Code(s): H53.2 - DIPLOPIA (2) Headache Status: Acute Code(s): R51 - HEADACHE (3) Abducent nerve palsy, right eye Status: Acute Code(s): H49.21 - SIXTH [ABDUCENT] NERVE PALSY, RIGHT EYE Plan: This patient is a 76-year-old female who developed sudden onset of horizontal diplopia 2 days ago. She was taken to [facility] where she underwent a computed tomography scan of the brain which was reported negative and then was transferred to the [facility] for further evaluation. Patient underwent MRI of the brain today the results which are noted above. 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 There appears to be a right lateral rectus paresis. MRI of the brain failed to reveal any evidence of brainstem stroke. We are recommending the patient be evaluated for ocular paresis with an ophthalmology consultation. We will obtain a acetylcholine receptor antibody testing to further evaluate for myasthenia gravis. Her neurological examination otherwise is nonfocal. Given her severity of headaches as well as acute right lateral rectus weakness we would recommend an MRA of the brain to rule out cerebral aneurysm. MRA of the brain was reviewed today with the patient. 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 There does not appear to be any aneurysm in the [place]ckel[place]. Patient was seen by ophthalmology today who agree with evidence of a right lateral rectus palsy. She was advised to continue to use the eye patch. We have reviewed the MRA results today with the patient and her daughter at bedside. We have suggested a neurosurgical consultation in the outpatient clinic for further evaluation of this very small aneurysm. This does not appear to be contributing to her current symptoms. Patient should follow-up in the outpatient neurology clinic for results of the acetylcholine receptor antibody tests. She underwent ultrasound of the neck and we are waiting final report and recommendations based on this testing. Results of the computed tomography scan are as noted above. We recommend that she follow-up for the cystic lesion in the right parotid gland. Would recommend symptomatic treatment of her headaches at this time. Patient has been cleared for discharge home today. As noted we recommend she follow-up in the outpatient neurology clinic in 2-3 weeks to review her blood test results for the myasthenia gravis antibody tests. We will continue close neurological follow-up for this patient. Her overall prognosis at this time remains guarded.
--- NOTE | 2016-05-20 17:43 | P.DS ---
Providers Date of admission: 05/17/16 19:23 Attending physician: Lyle Kathleen MD Consults: 05/17/16 21:35 Consult Physician Routine Consulting Provider: Leonela Whaley Consult Reason/Comments: h/a, double vision x3 days Do you want consulting provider notified?: Yes 05/18/16 14:05 Consult Physician Routine Consulting Provider: Benito Marx Consult Reason/Comments: double vision Do you want consulting provider notified?: Yes Primary care physician: Stated None Hospital Course: Original Note: Subjective 76-year-old female with history of hypertension, diabetes mellitus type 2, the hospital with acute onset double vision. Patient was in good health until 2 nights ago and patient noted sudden onset double vision. Patient then went to the [facility] with similar complaints. Since patient has had 12 hours of symptoms initially it was discussed that patient could have a workup on outpatient basis. However patient complained of a headache during the same period of time that has been ongoing around her left eye. The patient covers her left eye is able to have normal vision. Initial computed tomography scan of the head was negative at the other facility. Patient denies having any other focal motor or sensory deficits. Patient denies having any dizziness when her left eye is closed especially. Does complain of a headache that is orbital location radiating to the back of her head does state to have some tearing around the eye as well. 05/19/2016 Patient appears to be doing well continues to have double vision. Patient currently has a patch on. Denies having any focal motor or sensory deficits at this time. States her headache and pressure around the left eye is significant only improved. 05/20/16 states headaches are improved continues to have double vision. Objective - Vital Signs Vital signs: Vital Signs Temp 98.0 F 05/19/16 12:00 Pulse 70 05/19/16 12:00 Resp 18 05/19/16 12:00 BP 126/70 05/19/16 12:00 Pulse Ox 96 05/19/16 12:00 Intake & Output 05/18/16 05/19/16 05/19/16 18:59 06:59 18:59 Intake Total 560 230 600 Balance 560 230 600 Weight 76.7 kg 76.7 kg Intake: IV 180 10 40 Sodium Chloride 0.9% 1, 180 10 40 000 ml @ 20 mls/hr IV . Q24H [facility] Rx#:[id number] Oral 380 220 560 Other: # Voids 3 1 - Exam In appearance alert oriented 3 in no distress Head is atraumatic normal supple pupils equal round react to light and accommodation Lungs good air entry clear to auscultation Abdomen soft nontender no organomegaly Heart S1-S2 heard regular rate and rhythm no murmurs appreciated Neuro no focal motor or sensory deficits noted patient complains of double vision. Psych appropriate affect. 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 #2 history of hypertension #3 dyslipidemia #4 diabetes mellitus type 2 #5 headaches, non specific #6 GERD 7. right sided parotid mass, outpatient ENT follow up 8. Right PICA aneurysm., follow up and potential eval with neurosurgery outpatient . Asa, Statin to continue Ophthalmology recs noted. 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, outpatient follow up Plan - Discharge Summary New Discharge Prescriptions: Acetaminophen-Codeine 300-30mg [Tylenol #3] 1 tab PO Q6H PRN #30 tablet PRN Reason: Pain Discharge Medication List Acetaminophen Tab [Tylenol] 1,000 mg PO QAM 05/17/16 [History] Aspirin [Adult Low Dose Aspirin EC] 81 mg PO DAILY 05/17/16 [History] Atorvastatin [Lipitor] 20 mg PO HS 05/17/16 [History] Bisoprolol [Zebeta] 10 mg PO DAILY 05/17/16 [History] Calcium Carbonate/Vitamin D3 [Calcium 600-Vit D3 800 Tab] 1 tab PO DAILY [History] DULoxetine HCL [Cymbalta] 60 mg PO DAILY 05/17/16 [History] Ergocalciferol [Vitamin D2 (DRISDOL)] 50,000 unit PO Q30D 05/17/16 [History] Loratadine [Claritin] 10 mg PO DAILY 05/17/16 [History] Losartan [Cozaar] 25 mg PO DAILY 05/17/16 [History] Melatonin 5 mg PO HS 05/17/16 [History] Multivits-Min/Iron/FA/Lutein [Centrum Silver Women Tablet] 1 tab PO DAILY [History] [place]-3 Fatty Acids/Fish Oil [Fish Oil 1,000 mg Softgel] 1 cap PO DAILY [History] Omeprazole 20 mg PO DAILY 05/17/16 [History] Acetaminophen-Codeine 300-30mg [Tylenol #3] 1 tab PO Q6H PRN #30 tablet [Rx] Follow up Appointment(s)/Referral(s): Leonela Whaley MD [STAFF PHYSICIAN] - 1 Week Benito Marx MD [STAFF PHYSICIAN] - 1 Week Jose A Peterson MD [STAFF PHYSICIAN] - 1 Week Discharge Disposition: HOME SELF-CARE
== END 2016-05-20 14:34 | disposition home or self-care (01) | DRG 123 ==
LOC: 6SEL 19:23
PROVIDERS: ADMIT Internal Medicine; ATTEND Internal Medicine
DX: H49.21 Sixth [abducent] nerve palsy, right eye (principal); I67.1 Cerebral aneurysm, nonruptured; E11.9 Type 2 diabetes mellitus without complications; H35.039 Hypertensive retinopathy, unspecified eye; E78.5 Hyperlipidemia, unspecified; I10 Essential (primary) hypertension; K21.9 Gastro-esophageal reflux disease without esophagitis; R51 Headache; R22.0 Localized swelling, mass and lump, head; Z79.82 Long term (current) use of aspirin; Z79.899 Other long term (current) drug therapy; Z88.1 Allergy status to other antibiotic agents
CPT/HCPCS: 70491; 70544; 70551; 71010; 80048; 80053; 83036; 83519; 84439; 84443; 85025; 85610; 93306; 93880; 95816

== ENCOUNTER 2016-06-12 11:52 | Day surgery (SDC) | payer MEDICARE ==
[2016-06-12 12:43] VITALS: TEMP 98
[2016-06-12] MEDS ORDERED: ALPRAZolam 0.25 MG TAB PO STA (12:43)
--- NOTE | 2016-06-12 14:50 | FL ---
EXAMINATION TYPE: FL sialography DATE OF EXAM ORDERED: 06/12/2016 2:32 PM HISTORY: RT PAROTID SWELLING. COMPARISON: None. PROCEDURE: The procedure was performed by Dr. Martinez. Stensen's duct on the right was cannulated using a 25-gauge sialography catheter. Injection of Omnipaque 240 was performed. FINDINGS: Sinuses duct itself is normal in caliber. There is decreased arborization of the ducts wit hin the gland. There is some sialectasis. No filling defects are seen. IMPRESSION: DECREASED ARBORIZATION OF DUCTS WITHIN THE RIGHT PAROTID GLAND AND SOME ATELECTASIS SUGGEST CHRONIC I NFECTION.
--- NOTE | 2016-06-12 15:07 | US ---
ULTRASOUND GUIDED FNA RIGHT PAROTID LESION BIOPSY: CLINICAL HISTORY: 1 cm right parotid lesion FINDINGS: The procedure was explained to the patient. The risks, complications, benefits and alternatives were discussed and any questions were answered. Informed consent was obtained. Patient was placed supin e on the ultrasound table and prepped and draped in the usual sterile fashion. Utilizing a 25 gauge needle, five passes were made into the right parotid lesion. Patient was stable throughout the procedure. Pathology is pending. All elements of maximal barrier and sterile technique were utilized. IMPRESSION: 1. Successful ultrasound guided FNA right parotid lesion biopsy.
[2016-06-12 15:59] VITALS: BP 101/68; PULSE 78; RESP 18
== END 2016-06-12 15:20 | disposition home or self-care (01) ==
LOC: RADPROMAIN 11:52 → EDSTATUS 12:00 → RADPROMAIN 15:20
PROVIDERS: ATTEND Otolaryngology
DX: K11.8 Other diseases of salivary glands (principal)
CPT/HCPCS: 88305; 88173; 42550; 70390; 76942; 10022; Q9966

== ENCOUNTER → 2017-03-06 | Outpatient (CLI) | payer MEDICARE ==
--- NOTE | 2017-03-06 23:33 | MR ---
EXAMINATION TYPE: MR angio head wo con DATE OF EXAM: 03/06/2017 COMPARISON: 05/19/2016 HISTORY: 77-year-old female with cerebral aneurysm, nonruptured TECHNIQUE: High-resolution 3-D [id number] imaging of the [place]. Rotational 3-D reconst ructions generated on a dedicated independent workstation. FINDINGS: There are small conical shaped prominences at the posterior communicating artery origins, right great er than left, measuring up to 2 mm. No significant stenosis, arterial occlusion, or otherwise any aneurysmal change seen. IMPRESSION: Stable conical shaped prominences at the origins of the posterior communicating arteries, right great er than left, measuring up to 2 mm. Tiny aneurysms versus, more likely, small PCOM infundibulums are suggested.
== END | disposition home or self-care (01) ==
LOC: RADMRIMAIN 11:00
PROVIDERS: ATTEND Psychiatry & Neurology Neurology
DX: I67.1 Cerebral aneurysm, nonruptured (principal)
CPT/HCPCS: 70544

== ENCOUNTER → 2018-03-07 | Outpatient (CLI) | payer MEDICARE ==
--- NOTE | 2018-03-07 13:32 | MR ---
EXAMINATION TYPE: MR angio head wo con DATE OF EXAM: 03/07/2018 12:00 PM COMPARISON: 03/06/2017 HISTORY: Diplopia, follow up aneurysm Three-dimensional nnmy-fo-ubperm intracranial MRA was performed with multiple intensity projection im ages submitted and source data reviewed at the workstation. The vertebrobasilar system as well as intracranial portions of the internal carotid arteries and thei r major tributaries are patent. There are small conical shaped prominences at the posterior communica ting artery origins, right greater than left, measuring up to 2 mm. IMPRESSION: Stable examination.
== END | disposition home or self-care (01) ==
LOC: RADMRIMAIN 10:24
PROVIDERS: ATTEND Psychiatry & Neurology Neurology
DX: H53.2 Diplopia (principal); I67.1 Cerebral aneurysm, nonruptured
CPT/HCPCS: 70544

== ENCOUNTER → 2018-08-13 | Outpatient (CLI) | payer MEDICARE ==
--- NOTE | 2018-08-13 21:57 | MR ---
EXAMINATION TYPE: MR iac wo/w con DATE OF EXAM: 08/13/2018 COMPARISON: MRI brain May 18, 2016. HISTORY: Right-sided hearing loss. TECHNIQUE: Multiplanar, multisequence images of the brain and brainstem is performed without and with IV contras t, utilizing 7.5 mL intravenous Gadavist . The acoustic nerve disorder protocol. FINDINGS: Diffusion weighted images demonstrate no evidence of a recent infarct or other diffusion ab normality. There is no worrisome extra-axial fluid collection. There is diffuse ventricular and sulc al prominence. There is some low attenuation in the deep and periventricular white matter. Midline structures demonstrate normal morphology. The craniocervical junction appears within normal limits. Post contrast images demonstrate no abnormal enhancement. The dural venous sinuses appear pa tent. The visualized sinuses are clear and the globes are intact. Cystic change at level of right par otid gland posteriorly axial image 4 is redemonstrated unchanged from prior. There is increased fluid signal left mastoid air cells redemonstrated. The vestibulocochlear complexe s are symmetric and felt within normal limits. No suspicious enhancing cerebellopontine angle mass is identified bilaterally. IMPRESSION: 1. 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 Correlate clinically. No suspicious enhancing masses are present. 2. There is mild diffuse cerebral atrophy and chronic small vessel ischemic change redemonstrated. Th ere is stable right parotid well-defined possible cystic mass or lesion, correlate clinically.
== END | disposition home or self-care (01) ==
LOC: RADMRIMAIN 16:07
PROVIDERS: ATTEND Otolaryngology
DX: G31.9 Degenerative disease of nervous system, unspecified (principal); I67.82 Cerebral ischemia; Z88.1 Allergy status to other antibiotic agents; H93.3X2 Disorders of left acoustic nerve
CPT/HCPCS: 70553; A9585

== ENCOUNTER → 2019-09-26 | Outpatient (CLI) | payer MEDICARE | END | disposition home or self-care (01) | LOC: LABWHC1 13:01 | PROVIDERS: ATTEND Internal Medicine | DX: Z20.828 Contact with and (suspected) exposure to other viral communicable diseases (principal) | CPT/HCPCS: U0003; C9803 ==

== ENCOUNTER → 2021-01-17 | Outpatient (CLI) | payer MEDICARE | END | disposition home or self-care (01) | LOC: LABWHC1 16:10 | PROVIDERS: ATTEND Psychiatry & Neurology Neurology | DX: H53.2 Diplopia (principal) | CPT/HCPCS: 36415 ==

== ENCOUNTER → 2024-05-23 | Outpatient (CLI) | payer MEDICARE ==
[2024-05-23 18:10] LABS: Basophils # (A) 0.03 X 10*3/uL (0.00-0.10); Basophils % (A) 0.5 %; Eosinophils % (A) 1.5 %; HCT 40.8 % (37.2-46.3); HGB 13.3 g/dL (12.0-15.0); Lymphocytes % (A) 48.9 %; MCH 30.4 pg (27.0-32.0); MCHC 32.6 g/dL (32.0-37.0); MCV 93.2 FL (80.0-97.0); Mean Platelet Volume 10.8 FL (9.5-12.2); Monocytes # (A) 0.47 X 10*3/uL (0.20-1.00); Monocytes % (A) 7.2 %; NRBC Per 100 WBC 0 X 10*3/uL (0.00-0.01); Neutrophils # (A) 2.74 X 10*3/uL (1.80-7.70); Neutrophils % (A) 41.7 %; Platelet Count 193 X 10*3/uL (140-440); RBC 4.38 X 10*6/uL (4.10-5.20); RDW 13.5 % (11.5-14.5); WBC 6.55 X 10*3/uL (4.50-10.00)
[2024-05-23 20:07] LABS: ALT 47 U/L (8-44); AST 43 U/L (13-35); Albumin 4.1 g/dL (3.8-4.9); Albumin/Globulin Ratio 1.21 Ratio (1.60-3.17); Alkaline Phosphatase 72 U/L (41-126); BUN/Creat Ratio 16.77 Ratio (12.00-20.00); Blood Urea Nitrogen 21.8 mg/dL (9.0-27.0); Calcium 9.6 mg/dL (8.7-10.3); Carbon Dioxide 24.8 mmol/L (21.6-31.8); Chloride 104 mmol/L (96-109); Globulin 3.4 g/dL (1.6-3.3); Glucose 147 mg/dL (70-110); LDL Cholesterol,Calculated 169.8 mg/dL (0.0-131.0); Potassium 4.8 mmol/L (3.5-5.5); Sodium 142 mmol/L (135-145); Total Bilirubin 0.4 mg/dL (0.3-1.2); Total Protein 7.5 g/dL (6.2-8.2)
== END | disposition home or self-care (01) ==
LOC: LABWHC1 14:37
PROVIDERS: ATTEND Student in an Organized Health Care Education/Training Program
DX: E78.5 Hyperlipidemia, unspecified (principal); F03.90 Unspecified dementia, unspecified severity, without behavioral disturbance, psychotic disturbance, mood disturbance, and anxiety; F32.A Depression, unspecified; Z86.39 Personal history of other endocrine, nutritional and metabolic disease
CPT/HCPCS: 36415; 80053; 80061; 82607; 83036; 84443; 85025

== ENCOUNTER → 2024-07-10 | Outpatient (CLI) | payer MEDICARE ==
--- NOTE | 2024-07-11 07:03 | NM ---
EXAMINATION TYPE: NM DatScan Brain SPECT DATE OF EXAM: 07/10/2024 COMPARISON: MRI brain 2017 CLINICAL INDICATION: Female, 84 years old with history of R26.9,R25.1,R29.898; TECHNIQUE: 10 drops of Lugol's solution was administered 1 hour prior to injection as a thyroid bloc jackie agent. After the administration of 4.52 mCi I-123 Ioflupane DaTscan. Images obtained 3 hours p ost injection. SPECT images of the brain were acquired with axial and coronal reconstructions. FINDINGS: The DaTSCAN demonstrates normal uptake of tracer throughout the striata. Consequently there is no evidence of loss of the pre-synaptic dopaminergic terminals on this investigation. IMPRESSION: Normal study. [facility], , 07/11/2024 7:00 AM
== END | disposition home or self-care (01) ==
LOC: RADNMMAIN 10:46
PROVIDERS: ATTEND Psychiatry & Neurology Neurology
DX: R26.9 Unspecified abnormalities of gait and mobility (principal); R25.1 Tremor, unspecified; R29.898 Other symptoms and signs involving the musculoskeletal system; R25.9 Unspecified abnormal involuntary movements
CPT/HCPCS: 78803; A9584

== ENCOUNTER → 2024-08-25 | Outpatient (CLI) | payer MEDICARE ==
[2024-08-25 16:24] LABS: Basophils # (A) 0.03 X 10*3/uL (0.00-0.10); Basophils % (A) 0.6 %; Eosinophils # (A) 0.16 X 10*3/uL (0.04-0.35); HCT 41.2 % (37.2-46.3); Lymphocytes # (A) 3.06 X 10*3/uL (0.90-5.00); Lymphocytes % (A) 56.6 %; MCH 30.3 pg (27.0-32.0); MCHC 31.6 g/dL (32.0-37.0); Mean Platelet Volume 11.1 FL (9.5-12.2); Monocytes % (A) 7.4 %; NRBC Per 100 WBC 0 X 10*3/uL (0.00-0.01); Neutrophils # (A) 1.75 X 10*3/uL (1.80-7.70); Neutrophils % (A) 32.2 %; Platelet Count 188 X 10*3/uL (140-440); RBC 4.29 X 10*6/uL (4.10-5.20); RDW 13.2 % (11.5-14.5); WBC 5.41 X 10*3/uL (4.50-10.00)
[2024-08-25 16:47] LABS: ALT 33 U/L (8-44); AST 39 U/L (13-35); Albumin 4.1 g/dL (3.8-4.9); Albumin/Globulin Ratio 1.24 Ratio (1.60-3.17); Alkaline Phosphatase 76 U/L (41-126); BUN/Creat Ratio 12.25 Ratio (12.00-20.00); Blood Urea Nitrogen 14.7 mg/dL (9.0-27.0); Calcium 9.8 mg/dL (8.7-10.3); Chloride 102 mmol/L (96-109); Chol/HDL Ratio 2.78 Ratio; Globulin 3.3 g/dL (1.6-3.3); Glucose 117 mg/dL (70-110); LDL Cholesterol,Calculated 69.8 mg/dL (0.0-131.0); Potassium 4.3 mmol/L (3.5-5.5); Sodium 143 mmol/L (135-145); Total Bilirubin 0.3 mg/dL (0.3-1.2); Total Protein 7.4 g/dL (6.2-8.2)
[2024-08-25 16:48] LABS: T4, Free (Free Thyroxine) 0.96 ng/dL (0.80-1.80)
== END | disposition home or self-care (01) ==
LOC: LABWHC1 08:46
PROVIDERS: ATTEND Student in an Organized Health Care Education/Training Program
DX: E78.00 Pure hypercholesterolemia, unspecified (principal); E11.9 Type 2 diabetes mellitus without complications
CPT/HCPCS: 36415; 80053; 80061; 83036; 84439; 84443; 85025